=== PATIENT | female | born 1975 | race African-American/Black ===

== ENCOUNTER 2016-10-24 22:46 | Emergency (ER) | payer MEDICARE ==
[~2016-10-24 22:46] MED LIST: ACETAMINOPHEN PO; ALB/IPRATROPIUM/1 E1 INH; ASPIRIN81 MG PO; GLUCOPHAGE500 M1 PO; HYDROCHLOROTHIA25 MG PO; MOTRIN400 M1 PO; PRENATAL MULITV1 TAB; PROTONIX PO; SINGULAIR PO; SYMBICORT INH; SYMBICORT80 INH
[2016-10-30] MEDS ORDERED: SYMBICORT80 INH (14:02)
[2016-10-30] MEDS ORDERED: METFORMIN HCL500 M1 PO (14:02)
[2016-10-30] MEDS ORDERED: HYDROCHLOROTHIA25 MG PO (14:02)
[2016-10-30] MEDS ORDERED: ALBUTEROL17 GM INH (14:03)
== END 2016-10-25 00:50 | disposition home or self-care (01) ==
LOC: CFTX 22:46
DX: L02.412 Cutaneous abscess of left axilla (principal); I10 Essential (primary) hypertension; E11.9 Type 2 diabetes mellitus without complications; K21.9 Gastro-esophageal reflux disease without esophagitis; J44.9 Chronic obstructive pulmonary disease, unspecified; F17.210 Nicotine dependence, cigarettes, uncomplicated
CPT/HCPCS: 10060; 87070; 87077; 87186; 87205; 99283

== ENCOUNTER → 2016-10-30 | Outpatient (CLI) | payer MEDICARE ==
[~2016-10-30] MED LIST changes: +ALBUTEROL17 GM INH; +METFORMIN HCL500 M1 PO
--- NOTE | ~2016-10-30 | EKG ---
PATIENT: JOELLEN TURK UNIT #: [id number] Ventricular Rate: 86 BPM Atrial Rate: 86 BPM P-R Interval: 162 ms QRS Duration: 78 ms Q-T Interval: 378 ms QTC Calculation(Bezet): 452 ms P Garrochales: 80 degrees Calculated R Garro[place]ales: 76 degrees Calculated T Garro[place]: 74 degrees Diagnosis Line: Normal sinus rhythm Diagnosis Line: Normal ECG Diagnosis Line: When compared with ECG of 17-MAR-2016 13:30, Diagnosis Line: No significant change was found Diagnosis Line: Confirmed by ANTHONY ZIEGLER MD ([id number]) on 10/30/2016 Diagnosis Line: 4:48:24 PM INTERPRETING MD: KARLIE VILLA
[2016-10-30 15:14] LABS: BLOOD UREA NITROGEN 11 mg/dL (9-23); BUN/CREATININE RATIO 15.71; CALCIUM SERUM 8.7 mg/dL (8.4-10.2); CARBON DIOXIDE 27 mmol/L (22-31); CHLORIDE 104 mmol/L (100-111); CREATININE SERUM 0.7 mg/dL (0.6-1.4); GLOM FILT RATE Estimated ABOVE60 mL/min (>60); GLUCOSE FASTING 93 mg/dL (70-110); POTASSIUM 3.9 mmol/L (3.5-5.1); SODIUM 137 mmol/L (135-145)
== END | disposition home or self-care (01) ==
LOC: CAMB 13:30
PROVIDERS: Surgery
DX: Z01.818 Encounter for other preprocedural examination (principal)
CPT/HCPCS: 36415; 80048; 93005

== ENCOUNTER → 2016-11-02 | Day surgery (SDC) | payer MEDICARE ==
--- NOTE | ~2016-11-02 | OR ---
Unit #: [id number] #: [id number] Patient: JOELLEN TURK [id number] [address] [place], [place] [address] [id number] O MR#: [id number] NAME: JOELLEN TURK ROOM: Date of Procedure: 11/02/2016 Admission Date: 11/02/2016 Surgeon: Robert Roca M.D. : 1975 Attending Physician: Robert Roca M.D. Referring Physician: Robert Roca M.D. Primary Care Physician: Al Patel M.D. OPERATIVE REPORT PREOPERATIVE DIAGNOSIS Hidradenitis, left axilla. POSTOPERATIVE DIAGNOSIS Hidradenitis, left axilla. PROCEDURE PERFORMED Excision of hidradenitis, left axilla 5 x 3 cm with layered closure. ANESTHESIA General LMA anesthesia with 0.5% Marcaine plain local anesthesia. FINDINGS The area was excised back to normal tissue and was closed with a layered closure. SPECIMENS Sent to pathology. COMPLICATIONS None apparent. CONDITION The patient tolerated the procedure well. INDICATIONS FOR PROCEDURE The patient is a 41-year-old black female, who has an area of recurrent hidradenitis of the left axilla. She presents at this time for excision as it is currently quiescent. DESCRIPTION OF PROCEDURE After obtaining informed consent as well as receiving preoperative antibiotics and subcu heparin, the patient was brought to the operating room and after adequate general LMA anesthesia was obtained, had her left axilla prepped and draped in a sterile fashion. An elliptical incision was made circumferentially around the area of hidradenitis in the left axilla. It was taken down through the skin with a knife and through the subcutaneous tissues and subdermal tissues with electrocautery. It was completely excised and sent to pathology. The wound was irrigated and hemostasis was obtained with the Bovie, infiltrated with 0.5% Marcaine plain local anesthesia. The deep tissues were reapproximated in 2 layers of interrupted 3-0 Vicryl sutures. The skin was closed with interrupted Unit #: [id number] #: [id number] Patient: JOELLEN TURK 3-0 Prolene vertical mattress sutures. A strip of Xeroform gauze was placed over the incision followed by a Telfa and a Tegaderm dressing. Needle counts, sponge counts, and instrument counts were all correct as reported by the scrub nurse x2. The patient went from the operating room to the recovery room in stable condition. Dictated by... Yusuf Castaneda/debbie TD: 11/02/2016 21:24 JOB #: [id number] CC: [facility] OPERATIVE REPORT X Robert Roca MD X PROCEDURE OPERATIVE NOTE
== END | disposition home or self-care (01) ==
LOC: CSUR 05:37
DX: L73.2 Hidradenitis suppurativa (principal); L02.412 Cutaneous abscess of left axilla; M79.89 Other specified soft tissue disorders; E11.9 Type 2 diabetes mellitus without complications; J45.909 Unspecified asthma, uncomplicated; J44.9 Chronic obstructive pulmonary disease, unspecified; K21.9 Gastro-esophageal reflux disease without esophagitis; F17.210 Nicotine dependence, cigarettes, uncomplicated; Z79.899 Other long term (current) drug therapy; Z90.89 Acquired absence of other organs; Z98.51 Tubal ligation status; Z98.890 Other specified postprocedural states
CPT/HCPCS: 82947; 84703; 88304; 88312; J1644; J2250; J2405; J2543; J3010

== ENCOUNTER → 2016-11-20 | Outpatient (CLI) | payer MEDICARE ==
--- NOTE | ~2016-11-20 | US140 ---
[facility] A Service of [facility] & [facility] RADIOLOGY TEXT RESULTS PATIENT: JOELLEN TURK LOCATION: CNIV : [birth year] UNIT #: [id number] AGE: [address]: Robert Roca MD SEX: F ORDER DR: [id number] [facility] [address] [place], [place] [address] [id number] O MR#: [id number] Acc #: [id number] NAME: JOELLEN TURK : 1975 SEX: F STUDY DATE/TIME: 11/20/2016 16:37 UNIT: CNIV ROOM: STUDY DESCRIPTION: UE Veins Unilat or Ltd Stdy Attending Physician: Robert Roca M.D. Referring Physician: Robert Roca M.D. Ordering Physician: Robert Roca M.D. Primary Care Physician: Al Patel M.D. MEDICAL IMAGING REPORT This report is preliminary unless electronic signature is present EXAM Left upper extremity venous Doppler. DATE OF EXAM 11/20/2016 INDICATION Left upper extremity swelling and bruising for 3 weeks. History of cyst removal in the left upper extremity 11/02/2016. FINDINGS Valle-scale, color flow, and spectral Doppler waveform analysis is performed of the left upper extremity venous system. All the venous structures demonstrate normal color flow and compressibility where applicable. No superficial or deep vein thrombosis is seen. IMPRESSION Negative left upper extremity venous Doppler. Dictated by... Jasvir Duncan Jr., M.D. THIS IS AN ELECTRONICALLY VERIFIED REPORT Jasvir Duncan Jr., M.D. at 11/23/2016 7:27 AM DAREK/ros TD: 11/20/2016 22:40 JOB #: [id number] MEDICAL IMAGING REPORT Page 1 of 1 COPY
== END | disposition home or self-care (01) ==
LOC: CNIV 16:12
DX: M79.89 Other specified soft tissue disorders (principal)
CPT/HCPCS: 93971

== ENCOUNTER 2017-01-04 17:19 | Emergency (ER) | payer MEDICARE ==
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
== END 2017-01-04 18:05 | disposition home or self-care (01) ==
LOC: CED 17:19
DX: J45.909 Unspecified asthma, uncomplicated (principal); E11.9 Type 2 diabetes mellitus without complications; I10 Essential (primary) hypertension; K21.9 Gastro-esophageal reflux disease without esophagitis; F17.200 Nicotine dependence, unspecified, uncomplicated
CPT/HCPCS: 71010; 94640; 99283

== ENCOUNTER 2017-02-22 10:44 | Emergency (ER) | payer OTHER, MEDICARE ==
--- NOTE | ~2017-02-22 | CR185 ---
[facility] A Service of [facility] & [facility] / [facility] RADIOLOGY TEXT RESULTS PATIENT: JOELLEN TURK LOCATION: CFTX : [birth year] UNIT #: [id number] AGE: [address]: Elissa Kam SEX: F ORDER DR: [id number] [facility] [address] [place], [place] [address] [id number] E MR#: [id number] Acc #: [id number] NAME: JOELLEN TURK : 1975 SEX: F STUDY DATE/TIME: 02/22/2017 12:57 UNIT: CFTX ROOM: STUDY DESCRIPTION: CR Lumbar Spine Single View Attending Physician: Elissa Kam Pa-C Ordering Physician: [facility] Primary Care Physician: Al Patel M.D. MEDICAL IMAGING REPORT This report is preliminary unless electronic signature is present EXAM Lumbar spine single view 02/22/2017. COMPARISON STUDIES 41-year-old female, respiratory failure, short of breath. COMPARISON Lumbar spine 08/19/2014. FINDINGS The lumbar spine evaluation is limited to a single AP view. The curvature and alignment are preserved. Vertebral body heights are maintained. Disc bases are preserved and posterior elements appear intact. Mineralization is normal. IMPRESSION Negative single AP view of the lumbar spine. Dictated by... João Grubbs M.D. THIS IS AN ELECTRONICALLY VERIFIED REPORT João Grubbs M.D. at 02/23/2017 8:10 AM JBB/pcl TD: 02/22/2017 20:54 JOB #: [id number] MEDICAL IMAGING REPORT Page 1 of 1 COPY
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
== END 2017-02-22 18:41 | disposition home or self-care (01) ==
LOC: CED 10:44 → CFTX 11:40
DX: S16.1XXA Strain of muscle, fascia and tendon at neck level, initial encounter (principal); S29.012A Strain of muscle and tendon of back wall of thorax, initial encounter; F17.200 Nicotine dependence, unspecified, uncomplicated; J45.909 Unspecified asthma, uncomplicated; J44.9 Chronic obstructive pulmonary disease, unspecified; I10 Essential (primary) hypertension; E11.9 Type 2 diabetes mellitus without complications; F32.9 Major depressive disorder, single episode, unspecified; K21.9 Gastro-esophageal reflux disease without esophagitis; V89.2XXA Person injured in unspecified motor-vehicle accident, traffic, initial encounter; Y92.89 Other specified places as the place of occurrence of the external cause
CPT/HCPCS: 29530; 72020; 72040; 72070; 72100; 73130; 73560; 84703; 99284